=== PATIENT | female | born 1980 | race Caucasian/White ===

== ENCOUNTER 2016-05-27 19:36 | Emergency (ER) | payer MEDICAID ==
[2016-05-27 19:36] VITALS: BMI 24.7
[2016-05-27 20:13] VITALS: RESP 16; TEMP 98; O2SAT 100
[2016-05-27] MEDS ORDERED: Sodium Chloride 0.9% 1,000 ML IV STA (20:35)
[2016-05-27 21:18] LABS: ADD MANUAL DIFF? NO
[2016-05-27 21:26] LABS: BASO # 0.02 K/mm3 (0.0-2.0); BASO % 0.2 % (0.0-3.0); EOS # 0.2 (0.0-0.7); EOS % 2.1 % (1.5-5.0); GRAN # 7.09 (1.4-6.5); GRAN % 65.5 % (50.0-68.0); HEMATOCRIT 33.2 % (36.0-48.0); LYMPH # 2.9 (1.2-3.4); LYMPH % 27.1 % (22.0-35.0); MEAN CELL VOLUME 78.1 fL (80.0-105.0); MEAN CORPUSCULAR HEMOGLOBIN 26.1 pg (25.0-35.0); MEAN CORPUSCULAR HGB CONC 33.4 g/dl (31.0-37.0); MONO # 0.6 (0.1-0.6); MONO % 5.1 % (1.0-6.0); PH,URINE 7.5 (4.7-8.0); PLATELET COUNT 168 10^3/uL (120.0-450.0); RED CELL DISTRIBUTION WIDTH 14.9 % (11.5-14.5); URINE BILIRUBIN NEGATIVE (NEGATIVE); URINE BLOOD TRACE-LYSED (NEGATIVE); URINE GLUCOSE (UA) NEGATIVE (NEGATIVE); URINE KETONE NEGATIVE (NEGATIVE); URINE LEUKOCYTE ESTERASE LARGE Leu/uL (NEGATIVE); URINE PROTEIN NEGATIVE mg/dL (<30 mg/dL); URINE UROBILINOGEN 0.2 E.U./dL (<1 E.U./dL); WHITE BLOOD COUNT 10.8 10^3/ul (4.5-11.0)
[2016-05-27 21:29] LABS: URINE APPEARANCE CLEAR (CLEAR); URINE COLOR YELLOW (YELLOW)
[2016-05-27 21:33] LABS: URINE BACTERIA MANY (NEG); URINE WBC 25 - 30 /hpf (0-6)
[2016-05-27 21:34] LABS: ALB/GLOB RATIO 1.1 (1.1-1.8); ALKALINE PHOSPHATASE 40 U/L (38-133); ALT/SGPT 18 U/L (7-56); AST/SGOT 27 U/L (15-39); BILIRUBIN,TOTAL 0.3 mg/dL (0.2-1.3); BLOOD UREA NITROGEN 7 mg/dL (7-21); CARBON DIOXIDE 24 mmol/L (21-33); CHLORIDE 103 mmol/L (98-107); GFR AFRICAN-AMERICAN > 60; GLUCOSE,RANDOM 98 mg/dL (70-110); POTASSIUM 3.8 mmol/L (3.6-5.0); SODIUM 135 mmol/L (132-148); TOTAL PROTEIN 7.1 g/dL (5.8-8.3); URINE AMORPHOUS SEDIMENT FEW
--- NOTE | 2016-05-27 21:58 | ED PDOC ---
Arrival/HPI <Stephen Orozco - Last Filed: 05/27/16 22:18> - General Historian: Patient - History of Present Illness Time/Duration: Prior to Arrival, < week Symptom Course: Intermittent Quality: Stabbing Severity Level: 7 <Jules Chacko - Last Filed: 05/27/16 22:44> - General Chief Complaint: Female Genitourinary Time Seen by Provider: 05/27/16 20:34 - History of Present Illness Narrative History of Present Illness (Text): 05/27/16 21:54 This is a 35 year old female with a PMH notable for hypothyroidism presenting to the ED with complaint of LLQ abdominal pain x 6 days. The patient is 5months . The patient is following with an outpatient PRODUCTION STAFF WORKER and is taking vitamins. The patient reports that she has been taking ibuprofen for the pain. The patient notes that the ibuprofen has helped her pain at home. The patient has also noted that rubbing the are has resolved her pain. The patient reports that the pain is brought on when sitting up from a supine position. The patient denies hernia, changes in urination/defecation and vaginal bleeding. The patient has a known history of an ovarian cyst on the left side. 05/27/16 21:58 05/27/16 22:01 (Jules Chacko) Past Medical History - Provider Review Nursing Documentation Reviewed: Yes - Travel History Have you recently traveled outside [place] w/in the past 3 mons?: No - Past History Past History: Non-Contributing - Infectious Disease Hx of Infectious Diseases: None - Tetanus Immunization Tetanus Immunization: Unknown - Reproductive Menopause: No - Past Medical History Past Medical History: Non-Contributing - Genitourinary/Gynecological Other/Comment: OVARIAN CYST - Psychiatric Hx Psychophysiologic Disorder: No Hx Substance Use: No - Surgical History Hx Section: Yes (x 2) <Jules Chacko - Last Filed: 05/27/16 22:44> Family/Social History - Physician Review Nursing Documentation Reviewed: Yes Family/Social History: No Known Family HX Smoking Status: Never Smoked Hx Alcohol Use: No Hx Substance Use: No <Jules Chacko - Last Filed: 05/27/16 22:44> Allergies/Home Meds <Stephen Orozco - Last Filed: 05/27/16 22:18> <Jules Chacko - Last Filed: 05/27/16 22:44> Allergies/Adverse Reactions: Allergies No Known Allergies Allergy (Verified 05/27/16 20:08) Home Medications: Home Meds Medication Instructions Recorded Confirmed Multivit/Folic Acid/I 1 tab PO DAILY 05/27/16 05/27/16 [] Review of Systems - Physician Review All systems were reviewed & negative as marked: Yes - Review of Systems Constitutional: absent: Fatigue, Fevers Eyes: absent: Vision Changes, Photophobia ENT: absent: Hearing Changes, Tinnitus Respiratory: absent: SOB, Cough Cardiovascular: absent: Chest Pain, Palpitations Gastrointestinal: Abdominal Pain (LLQ). absent: Stool Changes, Constipation, Diarrhea, Nausea, Vomiting, Hematochezia, Hematemesis, Food Intolerance Genitourinary Female: absent: Dysuria, Frequency Musculoskeletal: absent: Arthralgias, Back Pain Skin: absent: Rash, Pruritis Neurological: absent: Headache, Dizziness Endocrine: absent: Diaphoresis Hemo/Lymphatic: absent: Adenopathy Psychiatric: absent: Anxiety <Jules Chacko - Last Filed: 05/27/16 22:44> Physical Exam Vital Signs Reviewed: Yes Temperature: Afebrile Blood Pressure: Normal Pulse: Regular Respiratory Rate: Normal Appearance: Positive for: Well-Appearing, Non-Toxic, Comfortable Pain Distress: None Mental Status: Positive for: Alert and Oriented X 3 - Systems Exam Head: Present: Atraumatic, Normocephalic Pupils: Present: PERRL Extroacular Muscles: Present: EOMI Conjunctiva: Present: Normal Neck: Present: Normal Range of Motion. No: Lymphadenopathy Respiratory/Chest: Present: Clear to Auscultation, Good Air Exchange. No: Respiratory Distress, Accessory Muscle Use Cardiovascular: Present: Regular Rate and Rhythm, Normal S1, S2. No: Murmurs Abdomen: Present: Normal Bowel Sounds, Other (Fundal height approximately 4cm below the umbilicus, no hernia, no tenderness to palpation). No: Tenderness, Distention, Peritoneal Signs, Rebound, Guarding, McBurney's Point Tender, Hernias Upper Extremity: Present: Normal Inspection. No: Cyanosis, Edema Lower Extremity: Present: Normal Inspection. No: Edema Neurological: Present: GCS=15, CN II-XII Intact, Speech Normal Skin: Present: Warm, Dry, Normal Color. No: Rashes Psychiatric: Present: Alert, Oriented x 3 <Jules Chacko - Last Filed: 05/27/16 22:44> Vital Signs Temp Pulse Resp BP Pulse Ox 05/27/16 21:30 79 16 108/56 L 100 05/27/16 20:09 98.0 F 91 H 16 124/62 100 Medical Decision Making <Stephen Orozco - Last Filed: 05/27/16 22:18> Re-evaluation Time: 22:42 Reassessment Condition: Re-examined - Lab Interpretations Interpretation: Abnormal lab values (UA- large leukocyte esterase, many bacteria , yeast) - RAD Interpretation Tower Switch Operator: Radiologist <Jules Chacko - Last Filed: 05/27/16 22:44> ED Course and Treatment: 05/27/16 22:18 Patient seen and examined with resident Came up with treatment and disposition plan with resident Patient with positional left lower quadrant abdominal discomfort. On discharge, patient denies any pains or complaints, states that she has no vaginal bleeding, states that she has no contractions, and states that she feels well and will follow-up with her glass cutter in the next 1-2 days. Pt states she understands to return to the ER right away for new or worsening symptoms or for inability to f/u with PMD or specialist as instructed. Patient states that she fully agrees with and understands discharge instructions. States that she agrees with the plan and disposition. Verbalized and repeated discharge instructions and plan. I have given the patient opportunity to ask any additional questions. COMPARISON: US - OB , LIMITED 02/17/2016 12:38:39 PM FINDINGS: Fetus: There is a single living intrauterine gestation in transverse presentation. There is a heart rate of 134 beats per minute Placenta: Placenta is posterior. There is no previa. Amniotic fluid: Amnionic fluid volume appears normal. Anatomy: Evaluation of anatomy is limited by positioning and maternal habitus. Cord insertion is normal in appearance. Fluid is seen in the stomach. Spine appears intact. 4 chamber heart is not optimally demonstrated. BIOMETRICS Gestational age by US: 20 weeks 5 days EFW: 396 g BPD: 47.3 cm, 20 weeks 2 days HC: 18.06 cm, 20 weeks 3 days AC: 16.40 cm, 21 weeks 3 days FL: 3.43 cm, 20 weeks 6 days MATERNAL: Ovaries: Left ovary measures 2.95 x 2.57 x 2.30 cm. The right ovary measures approximately 4.9 x 2.76 x 2.56 cm. There is flow in both ovaries on Doppler imaging. Cervix: Cervix measures approximately 3.7 cm in line Free fluid: No free fluid. IMPRESSION: 20 week 5 day single transverse fetus, estimated date of delivery 08/20, interval growth and development since the prior study performed 02/17/16; no ovarian torsion Dictated and Authenticated by: Shirley Cash MD (Stephen Orozco) 05/27/16 22:01 Impression: This is a 35 year old female with a PMH notable for hypothyroidism presenting to the ED with complaint of LLQ abdominal pain x 6 days. The patient appears comfortable. The patient is in no acute distress. Differential: Abdominal muscle strain Ovarian Cyst UTI Plan: B-hCG TSH CBC, CMP UA 1L NS bolus Age US Prior Visits: Progress Note: Patient seen and examined at the bedside. No acute distress. Patient appears clinically stable. Patient instructed to avois NSAIDs during . Patient found to have a UTI with bacteria and yeast. The patient was given a script for macrobid 100mg po BID x 5 days. The patient is clinically stable. She was instructed to get OTC mediation for the yeast infection. Discharge plan discussed with the patient. She is agreeable with discharge. Patient medically stable for discharge. 05/27/16 22:42 Patient re-examined prior to discharge. The patient reports resolution of her abdominal pain following the 1L bolus. The patient is ambulating without difficulty. The discharge plan was discussed thoroughly. The patient has no questions regarding the plan, and is agreeable with discharge. The patient was medically stable for DC. (Jules Chacko) - Lab Interpretations Lab Results: 05/27/16 20:45 05/27/16 20:45 Lab Results 05/27/16 20:45: WBC 10.8 D, RBC 4.25, Hgb 11.1 L, Hct 33.2 L, MCV 78.1 L, MCH 26.1, MCHC 33.4, RDW 14.9 H, Plt Count 168, MPV 11.0, Gran % 65.5, Lymph % (Auto ) 27.1, [place] % (Auto) 5.1, Eos % (Auto) 2.1, Baso % (Auto) 0.2, Gran # 7.09 H, Lymph # 2.9, [place] # 0.6, Eos # 0.2, Baso # 0.02, Sodium 135, Potassium 3.8, Chloride 103, Carbon Dioxide 24, Anion Gap 12, BUN 7, Creatinine 0.5, Est GFR ( Amer) > 60, Est GFR (Non-Af Amer) > 60, Random Glucose 98, Calcium 9.0, Total Bilirubin 0.3, AST 27, ALT 18, Alkaline Phosphatase 40, Total Protein 7.1 , Albumin 3.7, Globulin 3.4, Albumin/Globulin Ratio 1.1, TSH 3rd Generation 1.70 , Beta HCG, Quant 4625.90 H, Urine Color Yellow, Urine Appearance Clear, Urine pH 7.5, Ur Specific [place] 1.010, Urine Protein Negative, Urine Glucose (UA) Negative, Urine Ketones Negative, Urine Blood Trace-lysed H, Urine Nitrate Negative, Urine Bilirubin Negative, Urine Urobilinogen 0.2, Ur Leukocyte Esterase Large H, Urine RBC 2 - 5, Urine WBC 25 - 30, Ur Epithelial Cells 6 - 8 , Amorphous Sediment Few, Urine Bacteria Many, Urine Other Uyeast - RAD Interpretation Narrative RAD Interpretations (Text): 05/27/16 22:12 20 week 5 day single transverse fetus, estimated date of delivery 10/09/16, interval growth and development since the prior study performed 02/17/16; no ovarian torsion (Jules Chacko) Radiology Orders: 05/27/16 20:35 AGE [US] Stat - Medication Orders Current Medication Orders: Discontinued Medications Sodium Chloride (Sodium Chloride 0.9%) 1,000 mls @ 999 mls/hr IV .Q1H1M STA Stop: 05/27/16 21:35 Last Admin: 05/27/16 20:53 Dose: 999 MLS/HR eMAR Start Stop Document 05/27/16 20:53 SF (Rec: 05/27/16 20:54 SF [id number] Intravenous Solution Start Date 05/27/16 Start Time 20:53 End Date 05/27/16 End time 21:53 Total Infusion Time 60 Disposition/Present on Arrival - Present on Arrival Any Indicators Present on Arrival: No - Disposition Have Diagnosis and Disposition been Completed?: Yes Patient Plan: Discharge <Jim Orozcoitriy - Last Filed: 05/27/16 22:18> - Present on Arrival Any Indicators Present on Arrival: No History of DVT/PE: No History of Uncontrolled Diabetes: No Urinary Catheter: No History of Decub. Ulcer: No History Surgical Site Infection Following: None - Disposition Have Diagnosis and Disposition been Completed?: Yes Disposition Time: 22:13 Patient Plan: Discharge <Jules Chacko - Last Filed: 05/27/16 22:44> - Disposition Diagnosis: UTI (urinary tract infection), Patient Problems: Current Active Problems Problem Status Diagnosed Acute UTI (urinary tract infection) Acute Discharge Instructions (ExitCare): Urinary Tract Infection in (ED), Abdominal Pain in (ED) Print Language: [place] Additional Instructions: 1.) Avoid NSAIDs for pain during 2.) Take macrobid 100mg by mouth every 12 hours for 5 days 3.) Use over the counter medications for vaginal yeast infection 4.) Follow up with PRODUCTION STAFF WORKER in 48 hours 5.) If symptoms return, please return to the ED for evaluation 6.) Follow up with PMD within 48 hours following discharge Prescriptions: Nitrofurantoin Macrocrystals [Macrobid] 100 mg PO BID #10 cap Referrals: [id number] [Other] - Follow up with primary
[2016-05-27 22:05] LABS: THYROID STIMULATING HORMONE 1.7 mIU/mL (0.46-4.68)
--- NOTE | 2016-05-27 22:07 | US ---
EXAM: US After First Trimester, Transabdominal. CLINICAL HISTORY: 35 years old, female; Pain; Other: Llq pain; LMP 12/20/59; 6 week 1 day intrauterine gestation seen on 02/17/60 ; Additional info: Llq abdominal pain TECHNIQUE: Real-time transabdominal obstetrical ultrasound of the maternal pelvis and a second or third trimester with image documentation. EXAM DATE/TIME: 05/27/2016 8:35 PM COMPARISON: US - OB , LIMITED 02/17/2016 12:38:39 PM FINDINGS: Fetus: There is a single living intrauterine gestation in transverse presentation. There is a heart rate of 134 beats per minute Placenta: Placenta is posterior. There is no previa. Amniotic fluid: Amnionic fluid volume appears normal. Anatomy: Evaluation of anatomy is limited by positioning and maternal habitus. Cord insertion is normal in appearance. Fluid is seen in the stomach. Spine appears intact. 4 chamber heart is not optimally demonstrated. BIOMETRICS Gestational age by US: 20 weeks 5 days EFW: 396 g BPD: 47.3 cm, 20 weeks 2 days HC: 18.06 cm, 20 weeks 3 days AC: 16.40 cm, 21 weeks 3 days FL: 3.43 cm, 20 weeks 6 days MATERNAL: Ovaries: Left ovary measures 2.95 x 2.57 x 2.30 cm. The right ovary measures approximately 4.9 x 2.76 x 2.56 cm. There is flow in both ovaries on Doppler imaging. Cervix: Cervix measures approximately 3.7 cm in line Free fluid: No free fluid. IMPRESSION: 20 week 5 day single transverse fetus, estimated date of delivery 10/09/16, interval growth and development since the prior study performed 02/17/16; no ovarian torsion
[2016-05-27 23:05] VITALS: BP 104/53; PULSE 88
== END 2016-05-27 23:05 | disposition home or self-care (01) ==
LOC: ED 19:36
DX: O23.42 Unspecified infection of urinary tract in pregnancy, second trimester (principal); Z3A.20 20 weeks gestation of pregnancy
CPT/HCPCS: 76815; 80053; 81001; 84443; 84702; 85025; 87086; 96360; 99285; J7040